=== PATIENT | male | born 1995 | race Caucasian/White ===

== ENCOUNTER 2018-10-06 20:05 | Emergency (ER) | payer OTHER ==
[2018-10-06] MEDS ORDERED: BUFFERED LIDOCAINE 10 ML SYRINGE SUBQ STA (21:35)
--- NOTE | 2018-10-06 21:50 | ED Physician Documentation ---
PD HPI UPPER EXT INJURY - Stated complaint Stated Complaint: SLICED FINGERS ON BOTH HANDS - Chief complaint Chief Complaint: Laceration - History obtained from History obtained from: Patient - History of Present Illness Location: Both, Finger Type of injury: Laceration Where injury occurred: Home Timing - onset: Today Timing - details: Abrupt onset Severity Comments: mild Improved by: Nothing Worsened by: Moving Associated symptoms: No: Weakness, Numbness, Tingling, Swelling Contributing factors: No: Anticoagulated Recently seen: Not recently seen Review of Systems Constitutional: reports: Fever Eyes: denies: Discharge Cardiac: denies: Chest pain / pressure GI: denies: Abdominal Pain Skin: reports: Laceration (s) Musculoskeletal: reports: Extremity pain Immunocompromised: denies: Chemotherapy PD PAST MEDICAL HISTORY - Past Medical History Past Medical History: No Cardiovascular: None Respiratory: None Neuro: None Endocrine/Autoimmune: None GI: None : None HEENT: Other Psych: None Musculoskeletal: None Derm: None Other Past Medical History: ruptered ear drums - Past Surgical History Past Surgical History: Yes HEENT: Myringotomy (tubes) - Allergies Allergies/Adverse Reactions: Allergies Allergy/AdvReac Type Severity Reaction Status Date / Time Sulfa (Sulfonamide Allergy Unknown Verified 10/06/18 20:18 Antibiotics) - Social History Does the pt smoke?: Yes Smoking Status: Current some day smoker Does the pt drink ETOH?: Yes Does the pt have substance abuse?: No - Immunizations Immunizations are current?: Yes - POLST Patient has POLST: No PD ED PE NORMAL - General General: Alert and oriented X 3, No acute distress - HEENT HEENT: Atraumatic, PERRL, EOMI, Ears normal - Extremities Extremities: No deformity - Neuro Neuro: Alert and oriented X 3, Normal speech - Psych Psych: Normal affect PD ED PE EXPANDED - Extremities GENNARO UE/Hands Visual: 1 - laceration (1 cm laceration, no active bleeding, no foreign body, no evidence of tendon or ligamentous injury) 2 - laceration (There is a avulsion of the skin, no area to suture this will need to heal via secondary intention) Results - Vitals Vitals: Vital Signs - 24 hr 10/06/18 20:16 Temperature 36.4 C L Heart Rate 120 H Respiratory 20 Rate Blood Pressure 137/86 H O2 Saturation 96 Oxygen O2 Source Room air Procedures - Laceration (location) Finger left Length in cm: 1 Wound type: Linear Neurovascular status: Sensory intact, Motor intact, Vascular intact Tendon involvement: Tendon intact, Tendon Injury Anesthesia: Lidocaine 1% Wound Preparation: Betadine, Irrigated copiously NS, Wound explored, To the b ase. No: FB identified, FB removed Skin layer closure: Nylon, Interrupted, Size #-0 - enter number (4), Sutures - enter # (3) Other: Patient tolerated well, No complications, Neurovascular intact, Dressing applied, Tetanus UTD Complexity: Simple PD MEDICAL DECISION MAKING - ED course ED course: 1 of the lacerations required 3 sutures, the others are more of a avulsion of the skin, there is no area that would benefit from sutures. This area will require healing via secondary intention. I discussed warnings for infection, I advised follow-up with primary care to have the sutures removed in 7-10 days. I recommend returning for any worsening or any concerns. Departure - Departure Disposition: 01 Home, Self Care Clinical Impression: Laceration Condition: Good Instructions: ED Laceration Hand Comments: Please have your sutures removed in 7-10 days Please return to the emergency department for any worsening or any concerns
[2018-10-06 22:04] VITALS: BP 131/76
== END 2018-10-06 22:00 | disposition home or self-care (01) ==
LOC: ED 20:05
DX: S61.213A Laceration without foreign body of left middle finger without damage to nail, initial encounter (principal); W29.0XXA Contact with powered kitchen appliance, initial encounter; Y93.G1 Activity, food preparation and clean up; Y92.009 Unspecified place in unspecified non-institutional (private) residence as the place of occurrence of the external cause
CPT/HCPCS: 12001; 99282; 99283

== ENCOUNTER 2018-12-09 09:10 | Outpatient (CLI) | payer OTHER | END 2018-12-09 09:11 | disposition critical access hospital (66) | LOC: EMS 09:10 | PROVIDERS: ATTEND Surgery | DX: T43.222A Poisoning by selective serotonin reuptake inhibitors, intentional self-harm, initial encounter (principal); T39.312A Poisoning by propionic acid derivatives, intentional self-harm, initial encounter; Y92.039 Unspecified place in apartment as the place of occurrence of the external cause; R11.2 Nausea with vomiting, unspecified; R25.8 Other abnormal involuntary movements; R09.89 Other specified symptoms and signs involving the circulatory and respiratory systems | CPT/HCPCS: A0425; A0427 ==

== ENCOUNTER 2018-12-09 09:27 | Emergency (ER) | payer OTHER ==
[2018-12-09 09:52] LABS: BASOPHILS # (AUTO) 0.2 10^3/uL (0.0-0.1); BASOPHILS % (AUTO) 1.2 %; EOSINOPHILS % (AUTO) 0.2 %; HGB - HEMOGLOBIN 15.5 g/dL (14.0-18.0); LYMPHOCYTES # (AUTO) 0.9 10^3/uL (1.5-3.5); LYMPHOCYTES % (AUTO) 5.6 %; MEAN CORPUSCULAR HEMOGLOBIN 30.2 pg (27.0-31.0); MEAN CORPUSCULAR HGB CONC 33.4 g/dL (32.0-36.0); MEAN CORPUSCULAR VOLUME 90.6 fL (80.0-94.0); MEAN PLATELET VOLUME 8.1 fL (7.4-11.4); MONOCYTES # (AUTO) 0.7 10^3/uL (0.0-1.0); MONOCYTES % (AUTO) 4.2 %; NEUTROPHILS # (AUTO) 14.6 10^3/uL (1.5-6.6); NEUTROPHILS % (AUTO) 88.8 %; PLT - PLATELET COUNT 249 10^3/uL (130-450); RED BLOOD COUNT 5.14 10^6/uL (4.70-6.10); RED CELL DISTRIBUTION WIDTH 13.3 % (12.0-15.0); WHITE BLOOD COUNT 16.5 x10^3/uL (4.8-10.8)
[2018-12-09 10:23] LABS: ACETAMINOPHEN < 10 ug/mL (10-30); ALBUMIN 4.1 g/dL (3.2-5.5); ALBUMIN/GLOBULIN RATIO 1.2 (1.0-2.2); ALKALINE PHOSPHATASE 81 IU/L (42-121); ALT ALANINE AMINOTRANSFERASE 27 IU/L (10-60); AST ASPARTATE AMINOTRANSFERASE 21 IU/L (10-42); BILIRUBIN,TOTAL 0.7 mg/dL (0.2-1.0); BUN - BLOOD UREA NITROGEN 6 mg/dL (6-20); CALCIUM 8.5 mg/dL (8.5-10.3); CARBON DIOXIDE - CO2 22 mmol/L (21-32); CHLORIDE 106 mmol/L (101-111); CREATININE 0.7 mg/dL (0.6-1.2); GFR - MDRD 137 (>89); GLUCOSE 113 mg/dL (70-100); LIPASE 106 U/L (22-51); SALICYLATE < 6.0 mg/dL; SODIUM 139 mmol/L (135-145); TOTAL PROTEIN 7.4 g/dL (6.7-8.2)
[2018-12-09] MEDS ORDERED: ONDANSETRON 4 MG/2 ML VIAL IVP STA (10:54)
[2018-12-09 13:09] LABS: MUDS CUTOFF CONCENTRATIONS CUTOFF CONC BELOW:
[2018-12-09 13:11] LABS: BILIRUBIN,URINE NEGATIVE (NEGATIVE); GLUCOSE, URINE (UA) NEGATIVE (NEGATIVE); KETONES,URINE (UA) NEGATIVE (NEGATIVE); LEUKOCYTE ESTERASE, URINE NEGATIVE (NEGATIVE); NITRITE,URINE NEGATIVE (NEGATIVE); OCCULT BLOOD,URINE NEGATIVE (NEGATIVE); PH,URINE 5.5 PH (5.0-7.5); PROTEIN,URINE NEGATIVE (NEGATIVE); UROBILINOGEN,URINE 0.2 (NORMAL) E.U./dL (NORMAL)
[2018-12-09 13:12] LABS: CLARITY,URINE CLEAR (CLEAR)
[2018-12-09 13:28] LABS: AMPHETAMINE SCREEN,URINE NEGATIVE (NEGATIVE); BENZODIAZEPINES SCREEN, URINE NEGATIVE (NEGATIVE); COCAINE SCREEN URINE POSITIVE (NEGATIVE); METHADONE SCREEN, URINE NEGATIVE (NEGATIVE); METHAMPHETAMINES SCREEN, URINE NEGATIVE (NEGATIVE); OPIATE SCREEN, URINE NEGATIVE (NEGATIVE); OXYCODONE SCREEN, URINE NEGATIVE (NEGATIVE); PROPOXYPHENE SCREEN, URINE NEGATIVE (NEGATIVE); TRICYCLIC ANTIDEPRESSANT,URINE NEGATIVE (NEGATIVE)
[2018-12-09] MEDS ORDERED: cefTRIAXone 1 GM in SODIUM CHLORIDE 0.9% MINIBAG 100 ML IV STA (13:37)
[2018-12-09] MEDS ORDERED: SODIUM CHLORIDE 0.9% 1,000 ML IV ONE (13:37)
[2018-12-09] MEDS ORDERED: DEXAMETHASONE 10 MG/ML VIAL IVP STA (13:37)
--- NOTE | 2018-12-09 13:40 | ED Physician Documentation ---
PD HPI MHE - Stated complaint Stated Complaint: OD - Chief complaint Chief Complaint: MHE - History obtained from History obtained from: Patient, EMS - History of Present Illness Primary symptom: Suicidal ideation, Suicide attempt, Self harm - OD Timing - onset: Enter time (529), Today Contributing factors: Sig other, Substance abuse - drugs Similar symptoms before: Has not had sx before Recently seen: Not recently seen - Additional information Additional information: 23-year-old male previously well with a history of substance abuse and chronic otitis media has had a separation from his of 7 years about 2-1/2 months ago. She has left him for another male. He does have a 2-year-old daughter with her and he is working nights at [employer] she is working days at the [employer]. The daughter spends her days with the ex-'s roommates. The patient states he sees his daughter about once per week. Last night the patient went out with a coworker did some cocaine and alcohol and about 5:00 in the morning and returned home to his empty house he became despondent felt that he was worthless and wanted to end it so that he would stop disappointing people. He took his ex-'s medications some Zoloft and naproxyn. He promptly vomited. Review of Systems Constitutional: denies: Fever, Chills Eyes: denies: Decreased vision Ears: reports: Ear pain, Drainage/discharge Nose: reports: Rhinorrhea / runny nose, Congestion Throat: denies: Sore throat Cardiac: denies: Chest pain / pressure, Palpitations Respiratory: reports: Cough. denies: Dyspnea GI: reports: Abdominal Pain, Nausea, Vomiting : denies: Dysuria, Frequency PD PAST MEDICAL HISTORY - Past Medical History Past Medical History: Yes Cardiovascular: None Respiratory: None Neuro: None Endocrine/Autoimmune: None GI: None : None HEENT: Other Psych: None Musculoskeletal: None Derm: None - Past Surgical History Past Surgical History: Yes HEENT: Myringotomy (tubes) - Present Medications Home Medications: Ambulatory Orders Medication Instructions Recorded Confirmed Amox/Clav 875/125 [Augmentin] 1 each PO Q12H #20 tablet 12/09/18 - Allergies Allergies/Adverse Reactions: Allergies Allergy/AdvReac Type Severity Reaction Status Date / Time Sulfa (Sulfonamide Allergy Unknown Verified 01/21/19 20:18 Antibiotics) - Social History Does the pt smoke?: Yes Smoking Status: Current every day smoker Does the pt drink ETOH?: Yes Does the pt have substance abuse?: No - Immunizations Immunizations are current?: Yes - POLST Patient has POLST: No PD ED PE NORMAL - Vitals Vital signs reviewed: Yes (tachypneic and hypertensive) - General General: Alert and oriented X 3, Well developed/nourished, Other (The patient appears fatigued and there is a delay in execution of motor commands.) - HEENT HEENT: Atraumatic, PERRL, EOMI, Other (The right TM is erythematous with distortion of the landmarks the left is without significant inflammation there is drainage in the ear canal and distortion of the landmarks. The mucous membranes are parched.) - Neck Neck: Supple, no meningeal sign, No bony TTP - Cardiac Cardiac: RRR, No murmur - Respiratory Respiratory: No respiratory distress, Clear bilaterally - Abdomen Abdomen: Soft, Non tender - Back Back: No CVA TTP, No spinal TTP - Derm Derm: Normal color, Warm and dry, No rash - Extremities Extremities: No deformity, No edema - Neuro Neuro: Alert and oriented X 3, library information technician 2-12 intact, No motor deficit, No sensory deficit, Normal speech Eye Opening: Spontaneous Motor: Obeys Commands Verbal: Oriented GCS Score: 15 - Psych Psych: Other (Mood is withdrawn and the affect is flat. There is no evidence of pressured speech or thought disorder.) Results - Vitals Vitals: Vital Signs - 24 hr 12/09/18 12/09/18 12/09/18 09:31 10:00 10:06 Temperature 36.2 C L Heart Rate 88 92 103 H Respiratory 33 H 22 22 Rate Blood Pressure 152/82 H 158/80 H 158/80 H O2 Saturation 96 95 96 12/09/18 12/09/18 12/09/18 10:15 10:30 10:45 Temperature Heart Rate 83 83 81 Respiratory 21 20 16 Rate Blood Pressure 144/68 H 154/77 H 136/82 H O2 Saturation 95 95 95 12/09/18 12/09/18 12/09/18 11:00 11:30 12:00 Temperature Heart Rate 83 91 89 Respiratory 20 20 20 Rate Blood Pressure 169/75 H 170/81 H 167/78 H O2 Saturation 95 96 96 12/09/18 12/09/18 12/09/18 12:30 13:00 14:00 Temperature Heart Rate 100 87 88 Respiratory 20 20 18 Rate Blood Pressure 160/64 H 175/86 H 153/80 H O2 Saturation 12/09/18 12/09/18 12/09/18 15:13 21:42 23:18 Temperature 36.4 C L 37.1 C 36.3 C L Heart Rate 80 90 80 Respiratory 21 12 16 Rate Blood Pressure 152/79 H 172/86 H 172/82 H O2 Saturation 96 96 95 Oxygen O2 Source Room air - EKG (time done) 0937 Rate: Rate (enter#) (88) Rhythm: NSR Intervals: Normal MN Ischemia: Normal ST segments Compare to prior EKG: Old EKG unavailable Computer interpretation: Agree with computer - Labs Labs: Laboratory Tests 12/09/18 12/09/18 12/09/18 09:45 09:45 09:45 WBC 16.5 H RBC 5.14 Hgb 15.5 Hct 46.6 MCV 90.6 MCH 30.2 MCHC 33.4 RDW 13.3 Plt Count 249 MPV 8.1 Neut # (Auto) 14.6 H Lymph # (Auto) 0.9 L [place] # (Auto) 0.7 Eos # (Auto) 0.0 Baso # (Auto) 0.2 H Absolute Nucleated RBC 0.00 Nucleated RBC % 0.0 Sodium 139 Potassium 4.1 Chloride 106 Carbon Dioxide 22 Anion Gap 11.0 BUN 6 Creatinine 0.7 Estimated GFR (MDRD) 137 Glucose 113 H Calcium 8.5 Total Bilirubin 0.7 AST 21 ALT 27 Alkaline Phosphatase 81 Troponin I < 0.04 Total Protein 7.4 Albumin 4.1 Globulin 3.3 Albumin/Globulin Ratio 1.2 Lipase 106 H TSH Urine Color Urine Clarity Urine pH Ur Specific [place] Urine Protein Urine Glucose (UA) Urine Ketones Urine Occult Blood Urine Nitrite Urine Bilirubin Urine Urobilinogen Ur Leukocyte Esterase Ur Microscopic Review Urine Culture Comments Salicylates < 6.0 Urine Opiates Screen Ur Oxycodone Screen Urine Methadone Screen Ur Propoxyphene Screen Acetaminophen < 10 L Ur Barbiturates Screen Ur Tricyclics Screen Ur Phencyclidine Scrn Ur Amphetamine Screen U Methamphetamines Scrn U Benzodiazepines Scrn Urine Cocaine Screen U Cannabinoids Screen Ethyl Alcohol 90.5 12/09/18 12/09/18 09:45 13:00 WBC RBC Hgb Hct MCV MCH MCHC RDW Plt Count MPV Neut # (Auto) Lymph # (Auto) [place] # (Auto) Eos # (Auto) Baso # (Auto) Absolute Nucleated RBC Nucleated RBC % Sodium Potassium Chloride Carbon Dioxide Anion Gap BUN Creatinine Estimated GFR (MDRD) Glucose Calcium Total Bilirubin AST ALT Alkaline Phosphatase Troponin I Total Protein Albumin Globulin Albumin/Globulin Ratio Lipase TSH 0.86 Urine Color DARK YELLOW Urine Clarity CLEAR Urine pH 5.5 Ur Specific [place] 1.025 Urine Protein NEGATIVE Urine Glucose (UA) NEGATIVE Urine Ketones NEGATIVE Urine Occult Blood NEGATIVE Urine Nitrite NEGATIVE Urine Bilirubin NEGATIVE Urine Urobilinogen 0.2 (NORMAL) Ur Leukocyte Esterase NEGATIVE Ur Microscopic Review NOT INDICATED Urine Culture Comments NOT INDICATED Salicylates Urine Opiates Screen NEGATIVE Ur Oxycodone Screen NEGATIVE Urine Methadone Screen NEGATIVE Ur Propoxyphene Screen NEGATIVE Acetaminophen Ur Barbiturates Screen NEGATIVE Ur Tricyclics Screen NEGATIVE Ur Phencyclidine Scrn NEGATIVE Ur Amphetamine Screen NEGATIVE U Methamphetamines Scrn NEGATIVE U Benzodiazepines Scrn NEGATIVE Urine Cocaine Screen POSITIVE H U Cannabinoids Screen POSITIVE H Ethyl Alcohol PD MEDICAL DECISION MAKING - ED course Complexity details: reviewed old records, reviewed results, re-evaluated patient, considered differential, d/w patient ED course: 23-year-old male with overdose of multiple medications has vomited shortly after his overdose and he appears to have nontoxic ingestion. He did this is a suicide attempt and he is no longer suicidal and he is cooperative and voluntary for treatment. He appears dehydrated on evaluation and he does have bilateral otitis which has rupture of the left and active infection in the right. He is administered saline dexamethasone and Rocephin. The community mental health social worker is consulted. The community mental health social worker makes arrangements for evaluation for inpatient psych care and expects to hear back from one of 3 hospitals. None of the hospitals called back and eventually the patient requested to leave and a safety plan was made with the patient and his x- and he was discharged to home. Departure - Departure Disposition: 01 Home, Self Care Clinical Impression: Attempted suicide Drug overdose Qualifiers: Encounter type: initial encounter Injury intent: intentional self-harm Qualifi ed Code(s): T50.902A - Poisoning by unspecified drugs, medicaments and biological substances, intentional self-harm, initial encounter Depression Qualifiers: Depression Type: major depressive disorder Major depression recurrence: single episode Active/Remission status: currently active Major depression episode severity: moderate Qualified Code(s): F32.1 - Major depressive disorder, single episode, moderate Otitis media Qualifiers: Otitis media type: suppurative Chronicity: acute Laterality: bilateral Recurrence: not specified as recurrent Spontaneous tympanic membrane rupture: with spontaneous rupture Qualified Code(s): H66.013 - Acute suppurative otitis media with spontaneous rupture of ear drum, bilateral Condition: Stable Instructions: ED Depression, ED Otitis Media Acute Adult Follow-Up: Your, PCP [Other] Prescriptions: Amox/Clav 875/125 [Augmentin] 1 each PO Q12H #20 tablet Discharge Date/Time: 12/09/18 23:29
--- NOTE | 2018-12-09 23:12 | ED Physician Documentation ---
ED Addendum - Addendum Addendum: Patient is voluntary and requesting to go home in the care of the . states that she is off for the night and will secure all lethal means including ropes or extension cords, medications, knives, etc. states that patient will be taken to counseling and other support services in the morning and she will be with him for the next 3 days at least. Patient discharged in the care of his . And states that he is no longer suicidal. 12/09/18 23:10
[2018-12-09 23:18] VITALS: BP 172/82
== END 2018-12-09 23:29 | disposition home or self-care (01) ==
LOC: EDUNIT# → ED 09:27
DX: T43.222A Poisoning by selective serotonin reuptake inhibitors, intentional self-harm, initial encounter (principal); T39.312A Poisoning by propionic acid derivatives, intentional self-harm, initial encounter; Y92.009 Unspecified place in unspecified non-institutional (private) residence as the place of occurrence of the external cause; F32.1 Major depressive disorder, single episode, moderate; H66.012 Acute suppurative otitis media with spontaneous rupture of ear drum, left ear; H66.001 Acute suppurative otitis media without spontaneous rupture of ear drum, right ear; E86.0 Dehydration; F17.200 Nicotine dependence, unspecified, uncomplicated; F14.90 Cocaine use, unspecified, uncomplicated; Z72.89 Other problems related to lifestyle
CPT/HCPCS: 36415; 80053; 80306; 80307; 80320; 80329; 81001; 81003; 83690; 84443; 84484; 85025; 87086; 93005; 96365; 96375; 99284; 99285

== ENCOUNTER 2019-01-08 04:34 | Outpatient (CLI) | payer OTHER | END 2019-01-08 04:35 | disposition critical access hospital (66) | LOC: EMS 04:34 | PROVIDERS: ATTEND Surgery | DX: R45.851 Suicidal ideations (principal); S61.511A Laceration without foreign body of right wrist, initial encounter; X78.9XXA Intentional self-harm by unspecified sharp object, initial encounter; Y92.039 Unspecified place in apartment as the place of occurrence of the external cause | CPT/HCPCS: A0425; A0429 ==

== ENCOUNTER 2019-01-08 04:52 | Emergency (ER) | payer OTHER ==
--- NOTE | 2019-01-08 05:19 | ED Physician Documentation ---
PD HPI MHE - Stated complaint Stated Complaint: SI - History obtained from History obtained from: Patient, EMS - History of Present Illness Primary symptom: Suicidal ideation, Self harm - cut, Depression Contributing factors: Family (recent divorce) Recently seen: Emergency Dept (T+R from this ED last month for SI) - Additional information Additional information: T+R from this ED last month for SI. He was eventually discharged from ED after unable to find available appropriate beds for patient, and after he felt safe being discharged and was able to contract for safety. MEAGAN collier for SI. He has self-inflicted right wrist lacerations and tells me "I tried to hit the radial artery but I guess I didn't get deep enough". He tells me that after being discharged from ED last month, he followed up with his PMD and arrangements were made for inpatient treatment at [facility]; he says he was admitted to [facility] December 15 and was discharged four days ago. He tells me he would like to be sent back to [facility] if possible. He also says he crushed two of his Wellbutrin and snorted them, as he was feeling suicidally depressed and he thought this would lead to a faster beneficial effect than taking it orally. Review of Systems Cardiac: reports: Reviewed and negative Respiratory: reports: Reviewed and negative GI: reports: Reviewed and negative Neurologic: reports: Reviewed and negative Psychiatric: reports: Depressed, Suicidal, Anxiety. denies: Homicidal, Hallucinations, Delusions PD PAST MEDICAL HISTORY - Past Medical History Cardiovascular: None Respiratory: None Neuro: None Endocrine/Autoimmune: None GI: None : None HEENT: Other Psych: None Musculoskeletal: None Derm: None - Past Surgical History Past Surgical History: Yes HEENT: Myringotomy (tubes) - Present Medications Home Medications: Ambulatory Orders Medication Instructions Recorded Confirmed Bupropion HCl [Wellbutrin Xl] 300 mg PO DAILY 01/08/19 01/08/19 Prazosin HCl [Minipress] 0 mg PO DAILY 01/08/19 01/08/19 Venlafaxine ER [Effexor ER] 0 mg PO DAILY 01/08/19 01/08/19 - Allergies Allergies/Adverse Reactions: Allergies Allergy/AdvReac Type Severity Reaction Status Date / Time Sulfa (Sulfonamide Allergy Unknown Verified 01/08/19 05:15 Antibiotics) - Social History Does the pt smoke?: Yes Smoking Status: Current every day smoker Does the pt drink ETOH?: Yes Does the pt have substance abuse?: No - Immunizations Immunizations are current?: Yes - POLST Patient has POLST: No PD ED PE NORMAL - Vitals Vital signs reviewed: Yes - General General: Alert and oriented X 3, No acute distress, Well developed/nourished - HEENT HEENT: PERRL, EOMI - Cardiac Cardiac: RRR, No murmur - Respiratory Respiratory: No respiratory distress, Clear bilaterally - Extremities Extremities: No edema - Neuro Neuro: Alert and oriented X 3, veterinary hospital shift lead 2-12 intact, No motor deficit, No sensory deficit, Normal speech PD ED PE EXPANDED - Extremities GENNARO UE/Hands Visual: 1 - laceration (4 cm length) 2 - laceration (2 cm length) 3 - laceration (three superficial linear lacerations) Results - Vitals Vitals: Vital Signs - 24 hr 01/08/19 01/08/19 01/09/19 12:31 18:06 08:15 Temperature 36.7 C 36 C L Heart Rate 108 H 89 66 Respiratory 18 16 12 Rate Blood Pressure 156/88 H 149/88 H 139/89 H O2 Saturation 97 97 99 Oxygen O2 Source Room air - Labs Labs: Laboratory Tests 01/08/19 01/08/19 01/08/19 05:00 05:00 05:00 WBC 10.2 RBC 5.46 Hgb 16.4 Hct 49.2 MCV 90.1 MCH 30.0 MCHC 33.4 RDW 13.3 Plt Count 303 MPV 8.2 Neut # (Auto) 5.0 Lymph # (Auto) 3.9 H [place] # (Auto) 1.1 H Eos # (Auto) 0.1 Baso # (Auto) 0.1 Absolute Nucleated RBC 0.00 Nucleated RBC % 0.0 Sodium 141 Potassium 3.5 Chloride 99 L Carbon Dioxide 26 Anion Gap 16.0 H BUN < 5 L Creatinine 0.7 Estimated GFR (MDRD) 137 Glucose 125 H Calcium 9.0 Urine Color Urine Clarity Urine pH Ur Specific [place] Urine Protein Urine Glucose (UA) Urine Ketones Urine Occult Blood Urine Nitrite Urine Bilirubin Urine Urobilinogen Ur Leukocyte Esterase Ur Microscopic Review Urine Culture Comments Salicylates < 6.0 Urine Opiates Screen Ur Oxycodone Screen Urine Methadone Screen Ur Propoxyphene Screen Acetaminophen < 10 L Ur Barbiturates Screen Ur Tricyclics Screen Ur Phencyclidine Scrn Ur Amphetamine Screen U Methamphetamines Scrn U Benzodiazepines Scrn Urine Cocaine Screen U Cannabinoids Screen Ethyl Alcohol 202.7 01/08/19 01/08/19 09:00 14:21 WBC RBC Hgb Hct MCV MCH MCHC RDW Plt Count MPV Neut # (Auto) Lymph # (Auto) [place] # (Auto) Eos # (Auto) Baso # (Auto) Absolute Nucleated RBC Nucleated RBC % Sodium Potassium Chloride Carbon Dioxide Anion Gap BUN Creatinine Estimated GFR (MDRD) Glucose Calcium Urine Color YELLOW Urine Clarity CLEAR Urine pH 6.0 Ur Specific [place] 1.010 Urine Protein NEGATIVE Urine Glucose (UA) NEGATIVE Urine Ketones TRACE Urine Occult Blood NEGATIVE Urine Nitrite NEGATIVE Urine Bilirubin NEGATIVE Urine Urobilinogen 0.2 (NORMAL) Ur Leukocyte Esterase NEGATIVE Ur Microscopic Review NOT INDICATED Urine Culture Comments NOT INDICATED Salicylates Urine Opiates Screen NEGATIVE Ur Oxycodone Screen NEGATIVE Urine Methadone Screen NEGATIVE Ur Propoxyphene Screen NEGATIVE Acetaminophen Ur Barbiturates Screen NEGATIVE Ur Tricyclics Screen NEGATIVE Ur Phencyclidine Scrn NEGATIVE Ur Amphetamine Screen POSITIVE H U Methamphetamines Scrn POSITIVE H U Benzodiazepines Scrn NEGATIVE Urine Cocaine Screen NEGATIVE U Cannabinoids Screen NEGATIVE Ethyl Alcohol 24.8 Procedures - Laceration (location) Upper extremity right Ventral Length in cm: 6 (total length of lacerations 1 and 2 on diagram) Wound type: Linear, Into subcut fat, Clean Neurovascular status: Sensory intact, Motor intact, Vascular intact Tendon involvement: Tendon intact Anesthesia: Lidocaine 1% Wound Preparation: Chlorhexadine, Irrigated copiously NS, Wound explored, To the base Skin layer closure: Nylon, Running (5-0) Other: Patient tolerated well, No complications, Neurovascular intact, Dressing applied, Tetanus UTD Complexity: Simple PD MEDICAL DECISION MAKING - ED course Complexity details: reviewed old records, reviewed results, re-evaluated patient, considered differential, d/w patient ED course: Calm and cooperative during my shift. Care of patient signed out to oncoming ED physician at end of my shift pending medical clearance and subsequent SW consult Departure - Departure Disposition: 65 Psych Hosp/Unit DC/Xfer Clinical Impression: Laceration, Suicidal ideation Depression Qualifiers: Depression Type: unspecified Qualified Code(s): F32.9 - Major depressive disorder, single episode, unspecified Alcoholic intoxication Qualifiers: Complication of substance-induced condition: uncomplicated Qualified Code(s): F10.920 - Alcohol use, unspecified with intoxication, uncomplicated Condition: Stable Instructions: ED Depression Comments: See your doctor for removal of the stitches (right wrist) in 7-10 days.
[2019-01-08] MEDS ORDERED: LIDOCAINE 1% 2 ML VIAL SUBQ STA (05:29)
[2019-01-08 05:48] LABS: BASOPHILS # (AUTO) 0.1 10^3/uL (0.0-0.1); BASOPHILS % (AUTO) 0.5 %; EOSINOPHILS # (AUTO) 0.1 10^3/uL (0.0-0.7); EOSINOPHILS % (AUTO) 1.1 %; HGB - HEMOGLOBIN 16.4 g/dL (14.0-18.0); LYMPHOCYTES # (AUTO) 3.9 10^3/uL (1.5-3.5); LYMPHOCYTES % (AUTO) 38.7 %; MEAN CORPUSCULAR HGB CONC 33.4 g/dL (32.0-36.0); MEAN CORPUSCULAR VOLUME 90.1 fL (80.0-94.0); MEAN PLATELET VOLUME 8.2 fL (7.4-11.4); MONOCYTES # (AUTO) 1.1 10^3/uL (0.0-1.0); NEUTROPHILS % (AUTO) 48.7 %; PLT - PLATELET COUNT 303 10^3/uL (130-450); RED BLOOD COUNT 5.46 10^6/uL (4.70-6.10); RED CELL DISTRIBUTION WIDTH 13.3 % (12.0-15.0); WHITE BLOOD COUNT 10.2 x10^3/uL (4.8-10.8)
[2019-01-08 06:03] LABS: ACETAMINOPHEN < 10 ug/mL (10-30); BUN - BLOOD UREA NITROGEN < 5 mg/dL (6-20); CARBON DIOXIDE - CO2 26 mmol/L (21-32); CHLORIDE 99 mmol/L (101-111); CREATININE 0.7 mg/dL (0.6-1.2); GFR - MDRD 137 (>89); GLUCOSE 125 mg/dL (70-100); SALICYLATE < 6.0 mg/dL; SODIUM 141 mmol/L (135-145)
[2019-01-08] MEDS ORDERED: BACITRACIN OINT TOP STA (06:10)
[2019-01-08 09:11] LABS: MUDS CUTOFF CONCENTRATIONS CUTOFF CONC BELOW:
[2019-01-08 09:18] LABS: BILIRUBIN,URINE NEGATIVE (NEGATIVE); GLUCOSE, URINE (UA) NEGATIVE (NEGATIVE); KETONES,URINE (UA) TRACE mg/dL (NEGATIVE); LEUKOCYTE ESTERASE, URINE NEGATIVE (NEGATIVE); NITRITE,URINE NEGATIVE (NEGATIVE); OCCULT BLOOD,URINE NEGATIVE (NEGATIVE); PROTEIN,URINE NEGATIVE (NEGATIVE); UROBILINOGEN,URINE 0.2 (NORMAL) E.U./dL (NORMAL)
[2019-01-08 09:24] LABS: CLARITY,URINE CLEAR (CLEAR)
[2019-01-08 09:32] LABS: AMPHETAMINE SCREEN,URINE POSITIVE (NEGATIVE); COCAINE SCREEN URINE NEGATIVE (NEGATIVE); METHAMPHETAMINES SCREEN, URINE POSITIVE (NEGATIVE); OPIATE SCREEN, URINE NEGATIVE (NEGATIVE)
[2019-01-08 09:33] LABS: BENZODIAZEPINES SCREEN, URINE NEGATIVE (NEGATIVE); METHADONE SCREEN, URINE NEGATIVE (NEGATIVE); OXYCODONE SCREEN, URINE NEGATIVE (NEGATIVE); PROPOXYPHENE SCREEN, URINE NEGATIVE (NEGATIVE); TRICYCLIC ANTIDEPRESSANT,URINE NEGATIVE (NEGATIVE)
--- NOTE | 2019-01-08 12:20 | ED Physician Documentation ---
PD HPI M[facility] - Stated complaint Stated Complaint: SI - Chief complaint Chief Complaint: [facility] PD PAST MEDICAL HISTORY - Past Medical History Past Medical History: Yes Cardiovascular: None Respiratory: None Neuro: None Endocrine/Autoimmune: None GI: None : None HEENT: Other Psych: None Musculoskeletal: None Derm: None - Past Surgical History Past Surgical History: Yes HEENT: Myringotomy (tubes) - Present Medications Home Medications: Ambulatory Orders Medication Instructions Recorded Confirmed Bupropion HCl [Wellbutrin Xl] 300 mg PO DAILY 01/08/19 01/08/19 Prazosin HCl [Minipress] 0 mg PO DAILY 01/08/19 01/08/19 Venlafaxine ER [Effexor ER] 0 mg PO DAILY 01/08/19 01/08/19 - Allergies Allergies/Adverse Reactions: Allergies Allergy/AdvReac Type Severity Reaction Status Date / Time Sulfa (Sulfonamide Allergy Unknown Verified 01/08/19 05:15 Antibiotics) - Social History Does the pt smoke?: Yes Smoking Status: Current every day smoker Does the pt drink ETOH?: Yes Does the pt have substance abuse?: No - Immunizations Immunizations are current?: Yes - POLST Patient has POLST: No Results - Vitals Vitals: Vital Signs - 24 hr 01/08/19 01/08/19 01/08/19 05:11 05:16 12:31 Temperature 36.4 C L 36.7 C Heart Rate 84 108 H Respiratory 18 16 18 Rate Blood Pressure 144/99 H 156/88 H O2 Saturation 96 97 01/08/19 18:06 Temperature Heart Rate 89 Respiratory 16 Rate Blood Pressure 149/88 H O2 Saturation 97 Oxygen O2 Source Room air - Labs Labs: Laboratory Tests 01/08/19 01/08/19 01/08/19 05:00 05:00 05:00 WBC 10.2 RBC 5.46 Hgb 16.4 Hct 49.2 MCV 90.1 MCH 30.0 MCHC 33.4 RDW 13.3 Plt Count 303 MPV 8.2 Neut # (Auto) 5.0 Lymph # (Auto) 3.9 H [place] # (Auto) 1.1 H Eos # (Auto) 0.1 Baso # (Auto) 0.1 Absolute Nucleated RBC 0.00 Nucleated RBC % 0.0 Sodium 141 Potassium 3.5 Chloride 99 L Carbon Dioxide 26 Anion Gap 16.0 H BUN < 5 L Creatinine 0.7 Estimated GFR (MDRD) 137 Glucose 125 H Calcium 9.0 Urine Color Urine Clarity Urine pH Ur Specific [place] [employer] Urine Protein Urine Glucose (UA) Urine Ketones Urine Occult Blood Urine Nitrite Urine Bilirubin Urine Urobilinogen Ur Leukocyte Esterase Ur Microscopic Review Urine Culture Comments Salicylates < 6.0 Urine Opiates Screen Ur Oxycodone Screen Urine Methadone Screen Ur Propoxyphene Screen Acetaminophen < 10 L Ur Barbiturates Screen Ur Tricyclics Screen Ur Phencyclidine Scrn Ur Amphetamine Screen U Methamphetamines Scrn U Benzodiazepines Scrn Urine Cocaine Screen U Cannabinoids Screen Ethyl Alcohol 202.7 01/08/19 01/08/19 09:00 14:21 WBC RBC Hgb Hct MCV MCH MCHC RDW Plt Count MPV Neut # (Auto) Lymph # (Auto) [place] # (Auto) Eos # (Auto) Baso # (Auto) Absolute Nucleated RBC Nucleated RBC % Sodium Potassium Chloride Carbon Dioxide Anion Gap BUN Creatinine Estimated GFR (MDRD) Glucose Calcium Urine Color YELLOW Urine Clarity CLEAR Urine pH 6.0 Ur Specific [place] [facility] 1.010 Urine Protein NEGATIVE Urine Glucose (UA) NEGATIVE Urine Ketones TRACE Urine Occult Blood NEGATIVE Urine Nitrite NEGATIVE Urine Bilirubin NEGATIVE Urine Urobilinogen 0.2 (NORMAL) Ur Leukocyte Esterase NEGATIVE Ur Microscopic Review NOT INDICATED Urine Culture Comments NOT INDICATED Salicylates Urine Opiates Screen NEGATIVE Ur Oxycodone Screen NEGATIVE Urine Methadone Screen NEGATIVE Ur Propoxyphene Screen NEGATIVE Acetaminophen Ur Barbiturates Screen NEGATIVE Ur Tricyclics Screen NEGATIVE Ur Phencyclidine Scrn NEGATIVE Ur Amphetamine Screen POSITIVE H U Methamphetamines Scrn POSITIVE H U Benzodiazepines Scrn NEGATIVE Urine Cocaine Screen NEGATIVE U Cannabinoids Screen NEGATIVE Ethyl Alcohol 24.8 PD MEDICAL DECISION MAKING - ED course Complexity details: d/w patient, d/w specialty development consultant ED course: At change of shift the patient's care was turned over to la pending evaluation by the medical social, and adequate metabolizing of alcohol. He remained cooperative throughout the shift. He had brief episode of nausea for which he was treated with sublingual Zofran 4 mg, with good results. The medical transcription radiology advises inpatient psychiatric treatment. At the end of my shift she continues to work on placement at a psychiatric facility that will receive him. I am turning his care over to the oncoming emergency physician pending placement. Departure - Departure Clinical Impression: Laceration, Suicidal ideation Depression Qualifiers: Depression Type: unspecified Qualified Code(s): F32.9 - Major depressive disorder, single episode, unspecified Alcoholic intoxication Qualifiers: Complication of substance-induced condition: uncomplicated Qualified Code(s): F10.920 - Alcohol use, unspecified with intoxication, uncomplicated Condition: Stable Instructions: ED Depression Comments: See your doctor for removal of the stitches (right wrist) in 7-10 days.
[2019-01-08] MEDS ORDERED: ONDANSETRON ODT 4 MG TABLET TL STA (17:43)
[2019-01-09 08:21] VITALS: BP 139/89
== END 2019-01-09 10:30 ==
LOC: EDUNIT# → ED 04:52
DX: S61.511A Laceration without foreign body of right wrist, initial encounter (principal); X78.9XXA Intentional self-harm by unspecified sharp object, initial encounter; F32.9 Major depressive disorder, single episode, unspecified; F10.920 Alcohol use, unspecified with intoxication, uncomplicated; F17.200 Nicotine dependence, unspecified, uncomplicated
CPT/HCPCS: 12002; 36415; 80048; 80320; 80329; 81003; 85025; 99284; A9270; Q0162; 80306; 80307; 81001; 87086